=== PATIENT | female | born 1960 | race Caucasian/White ===

== ENCOUNTER 2020-06-23 01:15 | Outpatient (CLI) | payer OTHER, SELFPAY ==
--- NOTE | 2020-06-23 15:30 | DI.CTLCSR_ITS ---
EXAM: CT CHEST LUNG CANCER SCREEN CLINICAL HISTORY: SCREENING FOR LUNG CA,CURRENT SMOKER, F17.210 TECHNIQUE: Imaging Protocol: Axial computed tomography images with coronal and sagittal reformatted images were created and reviewed COMPARISON: No exams were available for comparison FINDINGS: Tracheobronchial tree: Patent where visualized. Mediastinum and Mariaa: No dominant adenopathy or fluid collection. Pulmonary parenchyma: No consolidation or dominant measurable mass. No architectural distortion. Lung Nodules: None. Pleura: No effusion or pneumothorax. Heart: The heart is not dilated. Mild coronary artery calcification. Small pericardial effusion or p ericardial thickening. Aorta: Thoracic aorta non-dilated.Mild atherosclerosis. Upper abdomen: 3 cm round hypodense lesions seen in the anterior segment of the right lobe of the li gregor. This may represent a cyst. An hepatic ultrasound should be considered for further evaluation. Bones: Within normal limits. Soft Tissues: Unremarkable. IMPRESSION: 1. No pulmonary nodules. 2. Hypodense lesion in the liver as described above. An hepatic ultrasound may be considered for fur ther evaluation. Lung RADS Cat 1 - Negative: No nodules and definitely benign nodules Lung-RADS 1.0 CATEGORIES: Category 0 - Prior chest CT exam(s) being located for comparison. Category 1 - Annual screening in 12 months. No nodules or definitely benign nodules. Category 2 - Annual screening in 12 months. Benign appearance. Nodules with low likelihood of becomin g active cancer. Category 3 - 6-month follow-up. Probably benign. Short-term follow-up suggested. Nodules with low lik elihood of becoming active cancer. Category 4A - 3-month follow-up and CT/PET if >8 mm in size. Suspicious finding. Findings which requi re additional testing. Category 4B - Findings which require additional testing and tissue sampling. Suspicious finding. C Added to Any of the Above - History of prior lung cancer screening. S Added to Any of the Above - Significant unexpected other finding. RADIATION DOSE DELIVERED: 97.27mGy.cm Total DLP DATA REPOSITORY: All CT scans at this facility are submitted to the National Radiology Data Registry (NRDR) Dose Index Registry (DIR) with the [employer] ([employer]). RADIATION OPTIMIZATION: All CT scans at this facility use at least one of these dose optimization te chniques: automated exposure control; mA and/or kV adjustment per patient size (includes targeted exa ms where dose is matched to clinical indication); or iterative reconstruction.
== END 2020-06-23 01:35 ==
PROVIDERS: PCP Physician Assistant; Visit Provider Physician Assistant
DX: F17.210 Nicotine dependence, cigarettes, uncomplicated (principal)
CPT/HCPCS: G0297

== ENCOUNTER → 2020-07-26 21:01 | Outpatient (REF) | payer OTHER, SELFPAY ==
[2020-07-26 12:18] LABS: Anion Gap 5.2 mmol/L (3-11); BUN 12 mg/dL (7-18); CO2 30.8 mmol/L (21.0-32.0); CREATININE 0.77 mg/dL (0.55-1.02); Calcium 8.8 mg/dL (8.5-10.1); Calculated LDL 130 mg/dL (<100); Chloride 104 mmol/L (98-107); Cholesterol 203 mg/dL (<200); Glucose 183 mg/dL (74-106); HDL Cholesterol 49 mg/dL (40-60); Potassium 4.4 mmol/L (3.5-5.1); Sodium 140 mmol/L (136-145); Triglyceride 122 mg/dL (<150)
== END ==
LOC: NCHCN 21:01
PROVIDERS: PCP Physician Assistant; Visit Provider Physician Assistant
DX: I10 Essential (primary) hypertension (principal); R73.03 Prediabetes; F17.200 Nicotine dependence, unspecified, uncomplicated; K21.9 Gastro-esophageal reflux disease without esophagitis; N25.9 Disorder resulting from impaired renal tubular function, unspecified
CPT/HCPCS: 80048; 80061; 83036

== ENCOUNTER 2020-08-29 01:57 | Outpatient (CLI) | payer OTHER, SELFPAY ==
--- NOTE | 2020-08-29 | DI.MAMMO_ITS ---
EXAM: MG MAMMO SCREENING CLINICAL HISTORY: SCREENING, Z12.39 TECHNIQUE: Bilateral full field digital CC and MLO mammographic images were obtained with 3D tomosyn thesis and utilizing computer aided detection (CAD). COMPARISON: Available for comparison. FINDINGS: Masses/Architectural Distortion: Scattered nodules are seen in both breasts. No suspicious nodules a re identified at this time. Microcalcifications: No suspicious pleomorphic-type are seen. Skin Thickening/Nipple Retraction: None. IMPRESSION: 1. No significant interval change with no specific features of malignancy noted. 2. Unless there is more urgent need, screening mammography is recommended, as per [employer] guidelines. BI-RADS Category 1 - Negative Breast Density - Category B - Scattered areas of fibroglandular density Breast density category C or D implies that the patient has dense breast tissue. Dense breast tissue is very common and is not abnormal but dense breast tissue can make it harder to find cancer on a ma mmogram. Also, dense breast tissue may increase their breast cancer risk. This information about the result of the mammogram report was provided to the patient to raise their awareness. Use this report when you speak with the patient about their risks for breast cancer, which includes their family hist ory. At that time, you may recommend for more screening tests (Ultrasound or MRI) as they might be us eful based on their risk. A negative radiographic report should not delay biopsy if a dominant or clinically suspicious mass is present. Up to ten percent of cancers are not identified on mammography. A negative report may reinforce clinical impression. Adenosis and dense breasts may obscure an underlying neoplasm. False positive reports average 6 to 10%. Patient will receive a letter notifying them of these results.
== END 2020-08-29 02:17 ==
PROVIDERS: PCP Physician Assistant; Visit Provider Physician Assistant
DX: Z12.31 Encounter for screening mammogram for malignant neoplasm of breast (principal)
CPT/HCPCS: 77063; 77067

== ENCOUNTER 2020-10-18 03:05 | Outpatient (CLI) | payer OTHER, SELFPAY ==
--- NOTE | 2020-10-18 13:00 | NS.NUTBLAN_ITS ---
59 year old female referred for Medical Nutrition Therapy for poorly controlled DM 2. Home DM meds include 500 mg metformin BID, also takes atorvastatin and lisinopril for hyperlipidemia, HTN. Recent labs(07/2020) include A1C: 8.0% and LDL: 130 mg/dl- indicating elevates blood sugars and lipid levels putting Estefanía at risk for CAD and complications associated with DM. Reports visual issues, recommended eye exam steven. Diet recall indicates erratic meals with are high in simple sugars. No routine exercise, has back pain that limits her activity. Reports medication adherence. Accompanied by daughter that hs knowledgeable about nutrition, she has lost > 30 lbs following keto diet in last year when dx with DM. Daughter no longer has DM. Session today included how to follow consistent carb diet with emphasis on complex carbs, lean protein and non starchy vegetables. Encouraged Estefanía to check BS at least twice daily and provide Dm log at next MD visit. Reviewed different medications that may help regulate glycemic control- such as once a week Victoza or Trucility. GLP1 RA have also been shown to provide cardiovascular benefits. Goal is for Estefanía to lose 10% of body weight (about 25 lbs) in next 6 months and to follow a meal plan that provides [id number] kcal, 80-100g CHO, 60-80 g pro, 50-60 g fat. recommend using phone grazyna to monitor macro nutrient intake. Plan: no follow planned today, requested that Estefanía follow up if A1C > 7% at next draw. Recommended referral for eye exam, foot doc and follow up with PCP with blood sugar log at next week's appt.
== END 2020-10-18 03:06 | disposition home or self-care (01) ==
LOC: DS 03:05
PROVIDERS: PCP Physician Assistant; Visit Provider Dietitian, Registered
DX: E11.65 Type 2 diabetes mellitus with hyperglycemia (principal); I10 Essential (primary) hypertension; Z79.84 Long term (current) use of oral hypoglycemic drugs; E78.5 Hyperlipidemia, unspecified; Z71.3 Dietary counseling and surveillance
CPT/HCPCS: 97802

== ENCOUNTER 2022-02-06 12:23 | Outpatient (REF) | payer OTHER, SELFPAY ==
[2022-02-06 16:13] LABS: ALT 16 U/L (14-59); AST 13 U/L (15-37); Albumin 3.8 g/dL (3.4-5.0); Alkaline Phosphatase 78 U/L (46-116); BUN 22 mg/dL (7-18); Bilirubin, Total 0.5 mg/dL (0.2-1.0); CREATININE 0.8 mg/dL (0.55-1.02); Calcium 9.4 mg/dL (8.5-10.1); Calculated LDL 87 mg/dL (<100); Chloride 98 mmol/L (98-107); Cholesterol 164 mg/dL (<200); Glucose 309 mg/dL (74-106); HDL Cholesterol 43 mg/dL (40-60); Potassium 4.3 mmol/L (3.5-5.1); Sodium 137 mmol/L (136-145); Total Protein 6.9 g/dL (6.4-8.2); Triglyceride 171 mg/dL (<150)
[2022-02-06 16:59] LABS: COMMENT (LAB VIEW ONLY) 36.93 mg/dL; Microalb ug/mg Crea 9.7 ug/mg Cr
[2022-02-06 18:42] LABS: Hemoglobin A1C 9.4 % (<5.7)
== END 2022-02-06 12:24 | disposition home or self-care (01) ==
LOC: NCHCN 12:23
PROVIDERS: PCP Physician Assistant; Visit Provider Physician Assistant
DX: E11.9 Type 2 diabetes mellitus without complications (principal)
CPT/HCPCS: 80053; 80061; 82043; 82570; 83036